=== PATIENT | female | born 1950 | race African-American/Black ===

== ENCOUNTER 2016-10-24 21:46 | Emergency (ER) | payer OTHER, MEDICARE ==
[~2016-10-24] VITALS: Ht 160 cm; Wt 48.0 kg
[~2016-10-24 21:46] MED LIST: LIPITOR20 M1 PO; NIFEDICAL XL60 MG PO; OMEPRAZOLE20 M2 PO; PREVACID30 M1 OR; PREVACID30 M1 PO; TENORMIN PO
[2016-10-25] MEDS ORDERED: PERCOCET 5/325M1 TAB PO (01:14)
[2016-10-25 01:24] VITALS: BP 140/73
== END 2016-10-25 01:29 | disposition home or self-care (01) | DRG 563 ==
LOC: ED 21:46
DX: S39.012A Strain of muscle, fascia and tendon of lower back, initial encounter (principal); M62.830 Muscle spasm of back; V43.52XA Car driver injured in collision with other type car in traffic accident, initial encounter; Y92.410 Unspecified street and highway as the place of occurrence of the external cause

== ENCOUNTER 2018-06-18 01:23 | Observation (INO) | payer MEDICARE ==
[~2018-06-18] VITALS: Ht 160 cm; Wt 45.0 kg
[2018-06-18] VITALS (7 sets, daily range): BP systolic 138–194; BP diastolic 71–103
[~2018-06-18 01:23] MED LIST changes: +PERCOCET 5/325M1 TAB PO
--- NOTE | 2018-06-18 01:44 | NUR ---
PT. TO ROOM 9 VIA EMS WITH C/O A TRIP AND FALL THIS AM WHERE SHE STATES SHE INJURED HER RIGHT SHOULDER. FINGERS TO RIGHT HAND ARE WARM AND MOVEABLE WITH GOOD CAPILLARY REFILL < 2 SEC.
--- NOTE | 2018-06-18 02:40 | NUR ---
COMPLETE BED BATH GIVEN.
[2018-06-18 02:43] LABS: HEMATOCRIT 39.3 % (37.0-47.0); HEMOGLOBIN 13.2 g/dl (12.0-16.0); IMMATURE GRANULOCYTES 0.5 % (0.0-5.0); MEAN CELL VOLUME 93.3 fL CALC (80.0-100.0); MEAN CORPUSCULAR HGB 31.4 pG CALC (26.0-32.0); MEAN CORPUSCULAR HGB CONC 33.6 g/L CALC (32.0-36.0); NEUT# 8.72 thou/uL (2.00-7.15); RED BLOOD COUNT 4.21 mill/uL (4.20-5.60); RED CELL DISTRI WIDTH 14.3 % (11.5-15.5)
[2018-06-18 02:44] LABS: URINE BILIRUBIN - DIPSTICK NEGATIVE (NEGATIVE); URINE BLOOD DIPSTICK TRACE-LYSED (NEGATIVE); URINE COLOR YELLOW; URINE GLUCOSE - DIPSTICK NEGATIVE (NEGATIVE); URINE KETONE NEGATIVE (NEGATIVE); URINE NITRITE - DIPSTICK NEGATIVE (Negative); URINE PH 5.5 (4.5-8.0); URINE PROTEIN - DIPSTICK 30 mg/dL (NEG-TRACE); URINE SPECIFIC GRAVITY >=1.030; URINE UROBILINOGEN - DIPSTICK 0.2 E.U./dL (0.2)
[2018-06-18 02:46] LABS: BARBITURATES NEGATIVE (NEGATIVE); COCAINE NEGATIVE (NEGATIVE); METHADONE NEGATIVE (NEGATIVE); OXCYCODONE NEGATIVE (NEGATIVE); TETRAHYDROCANNABIONOL NEGATIVE (NEGATIVE); TRICYLIC ANTIDEPRESSANTS NEGATIVE (NEGATIVE)
[2018-06-18 02:47] LABS: URINE LEUK ESTERASE SMALL (NEGATIVE)
[2018-06-18 03:02] LABS: ALKALINE PHOSPHATASE 90 u/l (38-126); ANION GAP 15 (6-22 (CALC)); BILIRUBIN, TOTAL 1.2 mg/dL (0.0-1.4); BUN 14 mg/dL (8-23); BUN/CREATININE RATIO 31 (12-20 (CALC)); CARBON DIOXIDE 30 mmol/l (22-30); CHLORIDE 101 mmol/l (95-108); CREATININE 0.5 mg/dL (0.5-1.0); ETHYL ALCOHOL 0 mg/dl (0-30); GFR > 60 ML/MIN (>=60 (CALC)); GFR FOR AFR.AMER. > 60 ML/MIN (>=60 (CALC)); POTASSIUM 3.5 mmol/l (3.5-5.1); SGOT/AST 43 u/l (9-36); SODIUM 142 mmol/l (137-146); TOTAL PROTEIN 8.3 g/dL (6.3-8.2)
[2018-06-18 03:10] LABS: URINE BACTERIA MODERATE hpf; URINE SQUAMOUS EPITHELIAL CELL FEW EPI/hpf (0-FEW)
[2018-06-18 03:13] LABS: MYOGLOBIN 34 ng/mL (0 - 62)
--- NOTE | 2018-06-18 03:40 | NUR ---
PT. RESTING QUIETLY ON STRETCHER, NO C/O V/S STABLE.
--- NOTE | 2018-06-18 04:40 | NUR ---
PT. INCONTINENT OF A MODERATE AMT. OF URINE, LINENS CHANGED, CHANDRIKA CARE GIVEN.
--- NOTE | 2018-06-18 05:01 | NUR ---
IV ABT. STARTED PER MD ORDER.
--- NOTE | 2018-06-18 06:08 | NUR ---
IN ROOM TO DISCUSS CLINICAL FINDINGS WITH PT. VERBALIZED UNDERSTANDING.
--- NOTE | 2018-06-18 06:49 | NUR ---
Admission Note Report Given to: JASE NURSE Transported by: Wheelchair X Stretcher Transported with: X Nurse Transporter X Patent IV O2 X Director Of Retention
--- NOTE | 2018-06-18 07:03 | NUR ---
PT. TAKEN TO RI FLOOR VIA STRETCHER. NO C/O AT THIS TIME.
--- NOTE | 2018-06-18 08:12 | NUR ---
PT TRANSPORTED TO MS2 VIA STRETCHER ACCOMPIANED BY LORA SAMUELS. PT A/O X3. PERRLA. SPEECH IS CLEAR. RESP EVEN AND UNLABORED. LUNG SOUNDS CLEAR. TELE IN PLACE. BOWEL SOUNDS ACTIVE X4. STRONG RADIAL AND PEDAL PULSES. #20 LAC SL. FLUSHED AND PATENT. SITE APPEARS HEALTHY. SKIN INTACT. PT HAS RT SHOULDER THROBBING. 7 OUT OF 10 ON PAIN SCALE. REPOSITIONED FOR COMFORT. PT DENIES ANY FURTHER NEEDS. POC DISCUSSED. SAFETY PRECAUTIONS IN PLACE. CALL LIGHT IN REACH. WILL CONTINUE TO MONITOR.
--- NOTE | 2018-06-18 12:46 | NUR ---
PT FOUND ON THE SIDE OF THE BED W/ URINE ON THE FLOOR. CHANGE MANAGEMENT DIRECTOR ASSISTED PT TO RECLINER. INSTRUCTED PT TO CALL WHEN NEEDING ASSISTANCE TO GET UP. PT STATES UNDERSTANDING. NO C/O PAIN OR NEEDS. TELE IN PLACE. BED ALARM ON. WILL CONTINUE TO MONITOR.
--- NOTE | 2018-06-18 16:40 | NUR ---
PT SITTING IN RECLINER. NO C/O PAIN OR NEEDS. TELE IN PLACE. CALL LIGHT IN REACH. WILL CONTINUE TO MONITOR
--- NOTE | 2018-06-18 19:24 | NUR ---
REPORT FROM JASE KELLOGG. PT SITTING UP IN RECLINER. PT ALERT AND ORIENTED. PT C/O RIGHT SHOULDER PAIN WILL MEDICATE WITH NEXT AVAILABLE DOSE. IV SITE APPEARS HEALTHY. DISCUSSED POC. PT VERBALIZED UNDERSTANDING. BED ALARM IN PLACE FOR SAFETY. CALL LIGHT WITHIN REACH. WILL CONTINUE TO MONITOR.
[2018-06-19] VITALS (7 sets, daily range): BP systolic 137–160; BP diastolic 76–85
--- NOTE | 2018-06-19 00:10 | NUR ---
ASSISTED PT TO BATHROOM X1 PERSON ASSIST. PT VOIDED WITHOUT DIFFICULTY. PT DENIES ANY PAIN OR DISCOMFORT. CALL LIGHT WITHIN REACH. WILL CONTINUE TO MONITOR.
--- NOTE | 2018-06-19 04:19 | NUR ---
B/P 160/76 AND PT. C/O RIGHT SHOULDER PAIN; MEDICATED WITH ORDERED APRESOLINE; PRIMARY NURSE TO REASSESS;
[2018-06-19 05:12] LABS: HEMATOCRIT 35.6 % (37.0-47.0); HEMOGLOBIN 11.9 g/dl (12.0-16.0); IMMATURE GRANULOCYTES 0.2 % (0.0-5.0); MEAN CELL VOLUME 94.4 fL CALC (80.0-100.0); MEAN CORPUSCULAR HGB 31.6 pG CALC (26.0-32.0); MEAN CORPUSCULAR HGB CONC 33.4 g/L CALC (32.0-36.0); NEUT# 4.27 thou/uL (2.00-7.15); RED BLOOD COUNT 3.77 mill/uL (4.20-5.60); RED CELL DISTRI WIDTH 14.2 % (11.5-15.5)
--- NOTE | 2018-06-19 05:12 | NUR ---
FOLLOW UP FROM AYESHA GIVEN BY RN ON SHIFT. CURRENT BP 128/76 AND PULSE 77. PT RESTING COMFORTABLY IN BED AT THIS TIME. CALL LIGHT WITHIN REACH. WILL CONTINUE TO MONITOR.
[2018-06-19 05:26] LABS: ALKALINE PHOSPHATASE 66 u/l (38-126); ANION GAP 11 (6-22 (CALC)); BILIRUBIN, TOTAL 0.7 mg/dL (0.0-1.4); BUN 12 mg/dL (8-23); BUN/CREATININE RATIO 31 (12-20 (CALC)); CARBON DIOXIDE 25 mmol/l (22-30); CHLORIDE 106 mmol/l (95-108); CREATININE 0.4 mg/dL (0.5-1.0); GFR > 60 ML/MIN (>=60 (CALC)); GFR FOR AFR.AMER. > 60 ML/MIN (>=60 (CALC)); POTASSIUM 3.3 mmol/l (3.5-5.1); SGOT/AST 31 u/l (9-36); SODIUM 138 mmol/l (137-146)
[2018-06-19 05:27] LABS: ALBUMIN 3.8 g/dL (3.2-5.0); TOTAL PROTEIN 5.9 g/dL (6.3-8.2)
[2018-06-19 05:29] LABS: CHOLESTEROL HDL RATIO 1.8 (<4.4 (CALC)); MAGNESIUM 1.8 mg/dL (1.6-2.3)
--- NOTE | 2018-06-19 06:55 | NUR ---
PT REPORT RECIEVED FROM VALDEZ DUMONT. PT WATCHING TELEVISION. BED ALARM ON. CALL LIGHT IN REACH. WILL CONTINUE TO MONITOR.
--- NOTE | 2018-06-19 07:40 | NUR ---
PT A/O X3. SPEECH IS CLEAR. RESP EVEN AND UNLABORED. LUNG SOUNDS CLEAR. TELE IN PLACE. BOWEL SOUNDS ACTIVE X4. STRONG RADIAL AND PEDAL PULSES. #20 LAC LR @100. SITE APPEARS HEALTHY. SKIN INTACT. PT DENIES ANY PAIN OR NEEDS. POC DISCUSSED. SAFETY PRECAUTIONS IN PLACE. BED ALARM ON. CALL LIGHT IN REACH. WILL CONTINUE TO MONITOR.
--- NOTE | 2018-06-19 11:01 | NUR ---
PT UP IN RECLINER. NO C/O PAIN OR NEEDS. BED ALARM ON. CALL LIGHT IN REACH. WILL CONTINUE TO MONITOR.
--- NOTE | 2018-06-19 16:33 | NUR ---
PT SITTING IN RECLINER WATCHING TELEVISION. NO C/O PAIN OR NEEDS. TELE IN PLACE. CALL LIGHT IN REACH. WILL CONTINUE TO MONITOR.
[2018-06-19 17:55] LABS: URINE BILIRUBIN - DIPSTICK NEGATIVE (NEGATIVE); URINE BLOOD DIPSTICK SMALL (NEGATIVE); URINE COLOR YELLOW; URINE GLUCOSE - DIPSTICK NEGATIVE (NEGATIVE); URINE KETONE NEGATIVE (NEGATIVE); URINE LEUK ESTERASE MODERATE (NEGATIVE); URINE NITRITE - DIPSTICK NEGATIVE (Negative); URINE PROTEIN - DIPSTICK NEGATIVE (NEG-TRACE); URINE SPECIFIC GRAVITY 1.015; URINE UROBILINOGEN - DIPSTICK 0.2 E.U./dL (0.2)
[2018-06-19 18:21] LABS: URINE BACTERIA RARE hpf; URINE SQUAMOUS EPITHELIAL CELL FEW EPI/hpf (0-FEW)
--- NOTE | 2018-06-19 19:00 | NUR ---
REPORT RECEIVED FROM VALDEZ LAGUNA. PT RESTING IN BED, NO SIGNS OR SYMTOMS OF DISTRESS. SAFETY PRECAUTIONS IN PLACE. BED ALARM ACTIVE FOR PT SAFETY. WILL CONTINUE TO MONITOR.
--- NOTE | 2018-06-19 20:40 | NUR ---
PT RESTING IN BED. ALERT AND ORIENTED. RESPIRATIONS EVEN AND UNLABORED ON RA, LUNGS SOUNDS CLEAR. TELE MONITOR IN PLACE. PT DENIES ANY PAIN AT THIS TIME. PT ASSISTED TO THE BATHROOM, GATE STEADY. CHANGED PT GOWN AND ASSTED PT BACK INTO BED. BED ALARM ACTIVE FOR PT SAFETY. CALL HURTADO WITHIN REACH. WILL CONTINUE TO MONITOR.
--- NOTE | 2018-06-19 23:40 | NUR ---
PT BEING ASSISTED FROM THE RESTROOM BACK INTO BED BY AID. RESPIRATIONS EVEN AND UNLABORED. BED ALARM ACTIVATED FOR PT SAFETY. WILL CONTINUE TO MONITOR.
--- NOTE | 2018-06-20 03:16 | NUR ---
PT RESTING IN BED WITH EYES CLOSED. RESPIRATIONS EVEN AND UNLABORED ON RA. BED ALARM ACTIVE FOR PT SAFETY. WILL CONTINUE TO MONITOR.
[2018-06-20 04:50] VITALS: BP 179/78
--- NOTE | 2018-06-20 05:14 | NUR ---
ROUTINE VS OBTAINED BY STEEL FABRICATING SUPERVISOR BP 179/78. DIRECTOR OF NEIGHBORHOOD SERVICE CENTER OBTAINED A MANUAL BP 182/90. PRN 10MG IV APRESOLINE GIVEN. SAFETY PRECAUTIONS IN PLACE. BED ALARM ACTIVE FOR PT SAFETY. WILL CONTINUE TO MONITOR.
[2018-06-20 05:26] LABS: HEMATOCRIT 32.8 % (37.0-47.0); HEMOGLOBIN 10.8 g/dl (12.0-16.0); IMMATURE GRANULOCYTES 0.4 % (0.0-5.0); MEAN CELL VOLUME 95.3 fL CALC (80.0-100.0); MEAN CORPUSCULAR HGB 31.4 pG CALC (26.0-32.0); MEAN CORPUSCULAR HGB CONC 32.9 g/L CALC (32.0-36.0); RED BLOOD COUNT 3.44 mill/uL (4.20-5.60); RED CELL DISTRI WIDTH 14.3 % (11.5-15.5)
[2018-06-20 05:42] LABS: ANION GAP 7 (6-22 (CALC)); BUN 10 mg/dL (8-23); BUN/CREATININE RATIO 24 (12-20 (CALC)); CARBON DIOXIDE 29 mmol/l (22-30); CHLORIDE 108 mmol/l (95-108); CREATININE 0.4 mg/dL (0.5-1.0); GFR > 60 ML/MIN (>=60 (CALC)); GFR FOR AFR.AMER. > 60 ML/MIN (>=60 (CALC)); MAGNESIUM 1.8 mg/dL (1.6-2.3); POTASSIUM 3.7 mmol/l (3.5-5.1); SODIUM 139 mmol/l (137-146)
--- NOTE | 2018-06-20 06:55 | NUR ---
REPORT RECEIVED FROM ESMERN;PT OOB RESTING IN RECLINER, REPORTS EAGERNESS TO GO HOME TO FEED HER DOGS;INTRODUCED SELF TO PT AND POC DISCUSSED;ALERT & ORIENTED,FORGETFULNESS NOTED;RESPIRATIONS EVEN AND UNLABORED ON RA;PT DENIES ANY CURRENT PAIN OR NEEDS;TELE MONITORING IN PLACE;PT ENCOURAGED TO CALL FOR ASSISTANCE IF NEEDED;FALL PRECAUTIONS NOTED WITH BED ALARM ON FOR SAFETY;CALL LIGHT IN REACH;WILL CONTINUE TO MONITOR
[2018-06-20 07:30] VITALS: BP 170/63
--- NOTE | 2018-06-20 09:10 | NUR ---
PT OBB RESTING IN RECLINER;ALERT AND ORIENTED BUT FORGETFUL;FLIGHT OF IDEAS;ASSESSMENT COMPLETED;PT DENIES ANY CURRENT PAIN OR NEEDS,PAIN SCALE AND REPORTING EDUCATED;RESPIRATIONS EVEN AND UNLABORED ON RA,CLEAR LUNG SOUNDS NOTED;ABDOMEN SOFT ON PALPATION AND ACTIVE IN ALL 4 QUADRANTS;SKIN INTACT;#22G TO RIGHT FOREARM INFUSING LR @ 100ML/HR,SITE APPEARS HEALTHY;TELE MONITORING IN PLACE;PT DENIES ANY ADDITIONAL NEEDS BESIDES "TO GO HOME", ENCOURAGED TO CALL FOR ASSISTANCE IF NEEDED;FALL PRECAUTIONS IN PLACE WITH BED ALARM ON FOR SAFETY;CALL LIGHT IN REACH;WILL CONTINUE TO MONITOR
[2018-06-20 11:01] VITALS: BP 153/77
--- NOTE | 2018-06-20 11:35 | NUR ---
PT RESTING IN SEMI FOWLERS POSITION WITH SEIZURE PRECAUTIONS IN PLACE;RESPIRATIONS EVEN AND UNLABORED ON RA;PT DENIES ANY CURRENT PAIN OR NEEDS;IV SITE TO RIGHT FOREARM INFUSING BANANA BAG WITH EASE;TELE MONITORING IN PLACE;FALL PRECAUTIONS NOTED WITH BED ALARM ON FOR SAFETY;CALL LIGHT IN REACH;WILL CONTINUE TO MONITOR
[2018-06-20 11:57] VITALS: BP 150/72
--- NOTE | 2018-06-20 12:10 | NUR ---
AT BEDSIDE DISCUSSING POC INCLUDING D/C HOME,PT VERBALIZES UNDERSTANDING.
[2018-06-20 16:15] VITALS: BP 158/78
--- NOTE | 2018-06-20 16:30 | NUR ---
PT OOB RESTING IN RECLINER;ALERT AND ORIENTED X3;RESPIRATIONS EVEN AND UNLABORED ON RA;PT DENIES ANY CURRENT PAIN OR NEEDS;TELE MONITORING IN PLACE;IV SITE PATENT INFUSING BANANA BAG WITH EASE;WAITING FOR BANANA BAG TO BE COMPLETED FOR D/C HOME, PT VERBALIZES UNDERSTANDING;CALL LIGHT IN REACH;WILL CONTINUE TO MONITOR
--- NOTE | 2018-06-20 18:10 | NUR ---
ALL DISCHARGE INSTRUCTIONS PROVIDED AT THIS TIME,QUESTIONS ANSWERED;IV SITE REMOVED WITH CATHETER INTACT;[facility] PT REQUEST;WHEELCHAIR TO BE PROVIDED FOR DISCHARGE HOME.
--- NOTE | 2018-06-20 18:13 | NUR ---
Discharge instructions given. Patient verbalizes understanding of same. Discharged in stable condition via Wheelchair to Home with *Other. All belongings sent with pt. Pt transferred to [facility] via wheelchair in stable condition accompanied by drew ponce; [employer] waiting for transportation home.
== END 2018-06-20 18:11 | disposition home or self-care (01) ==
LOC: ED 01:23 → ED-I 06:11 → ED 06:19 → MS2 06:24
PROVIDERS: Emergency Medicine; Nurse Practitioner Family; ADMIT Internal Medicine Nephrology; ATTEND Internal Medicine Nephrology
DX: G93.41 Metabolic encephalopathy (principal); I10 Essential (primary) hypertension; E78.5 Hyperlipidemia, unspecified; N39.3 Stress incontinence (female) (male); F17.210 Nicotine dependence, cigarettes, uncomplicated; E46 Unspecified protein-calorie malnutrition; M25.511 Pain in right shoulder; W19.XXXA Unspecified fall, initial encounter; Y92.410 Unspecified street and highway as the place of occurrence of the external cause; Z68.1 Body mass index [BMI] 19.9 or less, adult; Z72.89 Other problems related to lifestyle
CPT/HCPCS: G0378; J1956

== ENCOUNTER 2019-09-11 13:54 | Emergency (ER) | payer MEDICARE ==
[2019-09-11] MEDS ORDERED: CEPHALEXIN500 M1 PO (14:12)
[2019-09-11 14:40] VITALS: BP 122/68
== END 2019-09-11 14:40 | disposition home or self-care (01) ==
LOC: ED 13:54
PROC: 0HQ1XZZ Repair Face Skin, External Approach (ICD-10-PCS; principal; 2019-09-11)
DX: S01.81XA Laceration without foreign body of other part of head, initial encounter (principal); M25.552 Pain in left hip; I10 Essential (primary) hypertension; F17.200 Nicotine dependence, unspecified, uncomplicated; W01.0XXA Fall on same level from slipping, tripping and stumbling without subsequent striking against object, initial encounter; Y92.410 Unspecified street and highway as the place of occurrence of the external cause

== ENCOUNTER 2019-09-22 10:14 | Emergency (ER) | payer MEDICARE ==
[~2019-09-22 10:14] MED LIST changes: +CEPHALEXIN500 M1 PO
[2019-09-22 10:40] VITALS: BP 132/94
== END 2019-09-22 10:40 | disposition home or self-care (01) ==
LOC: ED 10:14
DX: S01.81XD Laceration without foreign body of other part of head, subsequent encounter (principal); I10 Essential (primary) hypertension; F17.210 Nicotine dependence, cigarettes, uncomplicated; X58.XXXD Exposure to other specified factors, subsequent encounter

== ENCOUNTER 2019-10-12 09:42 | Emergency (ER) | payer MEDICARE ==
[~2019-10-12] VITALS: Ht 157.5 cm; Wt 44.0 kg
[2019-10-12] MEDS ORDERED: ULTRAM50 M1 PO (11:02)
[2019-10-12 11:15] VITALS: BP 143/87
== END 2019-10-12 11:15 | disposition home or self-care (01) ==
LOC: ED 09:42
DX: S73.102A Unspecified sprain of left hip, initial encounter (principal); I10 Essential (primary) hypertension; F17.200 Nicotine dependence, unspecified, uncomplicated; W01.0XXA Fall on same level from slipping, tripping and stumbling without subsequent striking against object, initial encounter; Y92.009 Unspecified place in unspecified non-institutional (private) residence as the place of occurrence of the external cause

== ENCOUNTER 2022-03-11 10:34 | Observation (INO) | payer MEDICARE ==
[~2022-03-11] VITALS: Ht 157.5 cm; Wt 50.0 kg
[2022-03-11] VITALS (29 sets, daily range): BP systolic 129–214; BP diastolic 63–112
[~2022-03-11 10:34] MED LIST changes: +ULTRAM50 M1 PO
--- NOTE | 2022-03-11 10:34 | NUR ---
PT TO ROOM VIA EMS STRETCHER
--- NOTE | 2022-03-11 11:34 | NUR ---
PT SITTING IN RM AWAITING RESULTS. CALL LIGHT WITHIN REACH.
--- NOTE | 2022-03-11 12:34 | NUR ---
PATIENT LAYING IN BED SLEEPING AT THIS TIME AWAITING RESULTS. CALL LIGHT WITHIN REACH.
--- NOTE | 2022-03-11 13:34 | NUR ---
PATIENT LAYING IN BED SLEEPING AT THIS TIME AWAITING RESULTS. CALL LIGHT WITHIN REACH.
[2022-03-11 14:11] LABS: HEMATOCRIT 37.8 % (37.0-47.0); HEMOGLOBIN 12.3 g/dl (12.0-16.0); MEAN CELL VOLUME 90.2 fL CALC (80.0-100.0); MEAN CORPUSCULAR HGB 29.4 pG CALC (26.0-32.0); MEAN CORPUSCULAR HGB CONC 32.5 g/dL CAL (32.0-36.0); NEUT# 3.8 thou/uL (2.00-7.15); RED BLOOD COUNT 4.19 mill/uL (4.20-5.60); RED CELL DISTRI WIDTH 14.6 % (11.5-15.5)
[2022-03-11 14:26] LABS: ALBUMIN 4.1 g/dL (3.2-5.0); ALKALINE PHOSPHATASE 60 u/l (38-126); ANION GAP 9 (6-22 (CALC)); BILIRUBIN, TOTAL 0.4 mg/dL (0.0-1.4); BUN 14 mg/dL (8-23); BUN/CREATININE RATIO 21 (12-20 (CALC)); CARBON DIOXIDE 28 mmol/l (22-30); CHLORIDE 108 mmol/l (95-108); CREATININE 0.7 mg/dL (0.5-1.0); GFR FOR AFR.AMER. > 60 ML/MIN (>=60 (CALC)); GFR OTHER RACES > 60 ML/MIN (>=60 (CALC)); POTASSIUM 4.1 mmol/l (3.5-5.1); SGOT/AST 22 u/l (9-36); SODIUM 140 mmol/l (137-146); TOTAL PROTEIN 6.9 g/dL (6.3-8.2)
--- NOTE | 2022-03-11 14:30 | NUR ---
PATIENT LAYING IN BED SLEEPING AT THIS TIME AWAITING RESULTS. CALL LIGHT WITHIN REACH.
--- NOTE | 2022-03-11 15:30 | NUR ---
PATIENT LAYING IN BED SLEEPING AT THIS TIME AWAITING RESULTS. CALL LIGHT WITHIN REACH.
--- NOTE | 2022-03-11 16:35 | NUR ---
PATIENT LAYING IN BED SLEEPING AT THIS TIME AWAITING ADMISSION. CALL LIGHT WITHIN REACH.
--- NOTE | 2022-03-11 17:32 | NUR ---
PT ARRIVED VIA STRETCHER ACCOMPAINED BY ER STAFF. REPORT FROM DEANN KELLOGG. PT TRANSFERED FROM STRETCHER TO BED. NO APPARENT DISTRESS NOTED. PT ALERT TO SELF. INCONTINENT OF B&B. SKIN INTACT. PT REFUSED IV SITE AND TO CHANGE INTO GOWN. ATTEMPTED TO ORIENTED PT TO ROOM AND CALL LIGHT SYSTEM. BED ALARM AND NONSKID SOCKS APPLIED. CALL LIGHT WITHIN REACH. WILL CONTINUE TO MONITOR.
--- NOTE | 2022-03-11 17:50 | NUR ---
Admission Note Report Given to: TIM PAULINO Transported by: Wheelchair X Stretcher Transported with: X Nurse Transporter Patent IV O2 Land Use Planner Location: ICU X MS2
[2022-03-11 18:30] LABS: URINE BILIRUBIN - DIPSTICK NEGATIVE (NEGATIVE); URINE BLOOD DIPSTICK NEGATIVE (NEGATIVE); URINE COLOR YELLOW; URINE GLUCOSE - DIPSTICK NEGATIVE (NEGATIVE); URINE KETONE NEGATIVE (NEGATIVE); URINE LEUK ESTERASE NEGATIVE (NEGATIVE); URINE PH 7.5 (4.5-8.0); URINE PROTEIN - DIPSTICK NEGATIVE (NEG-TRACE); URINE SPECIFIC GRAVITY 1.025; URINE UROBILINOGEN - DIPSTICK 0.2 E.U./dL (0.2)
[2022-03-11 18:32] LABS: URINE NITRITE - DIPSTICK NEGATIVE (Negative)
--- NOTE | 2022-03-11 19:30 | NUR ---
PATIENT POSITIONED ON HER LEFT SIDE IN POSITION. REFUSING DINNER AT THIS TIME. WILL SAVE IF SHE WANTS IT LATER. BP IS HIGH BUT PATIENT IS RESTLESS AND FIGHTING TO HAVE ANY KIND OF CARE OR ASSISTANCE AT THIS TIME. REFUSING ASSESSMENT AT THIS TIME. WILL ATTEMPT LATER. BED ALARM IN PLACE FOR PATIENT SAFETY AT THIS TIME. CALL LIGHT IN REACH. WILL CONT TO MONITOR.
--- NOTE | 2022-03-11 21:14 | NUR ---
PATIENT CONT TO REST IN BED. WAS ABLE TO GET BP AND WAS 151/63, HR-39. HR HAS BEEN LOW SINCE ADMISSION. WAS ABLE TO MEDICATE PATIENT WITH LOVENOX ORDERED. NO FUTHER CARE WAS ABLE TO BE PROVIDED. BED ALARM IN PLACE. CALL LIGHT IN REACH. WILL CONT TO MONITOR.
--- NOTE | 2022-03-12 01:53 | NUR ---
BED ALARM GOING OFF AND RESPONDED TO ROOM-PATIENT WAS TRYING TO GET OOB TO GO TO THE BR. UNSTEADY ON HIS FEET-ASSISTED TO BR TO VOID AND THEN ASSISTED TO BED. PATIENT REMAINS CONFUSED-ORIENTED TO SELF ONLY. WANTS TO KNOW HOW SHE GOT HERE-EXPLAINED TO HER THAT SHE WAS BROUGHT TO THE HOSPITAL BY THE PARAMEDICS AFTER SHE HAD FALLEN. LUNGS ARE CLEAR. HR IS IRREGULAR AND SLOW-40'S. ABD IS SOFT WITH ACTIVE BS. VOIDING IN THE BR. NO PERIPHERAL EDEMA. EATING HEALTHY CHOICE TURKEY MEAL. APPETITE IS GOOD. TAKING PO FLUIDS WELL. IV STARTED TO LEFT FOREARM-#22 WITH GOOD BLOOD RETURN. IVF NS PATENT AND INFUSING AT 100CC/HR. SAFETY PRECAUTIONS REINFORCED. BED ALARM IN PLACE FOR PATIENT SAFETY. CALL LIGHT IN REACH. WILL CONT TO MONITOR.
--- NOTE | 2022-03-12 02:32 | NUR ---
X-RAY WAS DONE AT BEDSIDE. IVF PATENT AND INFUSING VIA LEFT FORFEARM SITE AT 100CC/HR. PATIENT REMAINS CONFUSED BUT PLEASANT AT THIS TIME. BED ALARM IN PLACE FOR SAFETY. CALL LIGHT IN REACH.WILL CONT TO MONITOR.
[2022-03-12 05:08] VITALS: BP 160/89
[2022-03-12 07:08] VITALS: BP 178/73
[2022-03-12 07:09] VITALS: BP 178/73
--- NOTE | 2022-03-12 07:16 | NUR ---
PT RESTING IN LOW FOWLERS POSITION. ASSESSMENT AND VS COMPLETED. HEART RHYTHM NORM RESPIRAITONS ON ROOM AIR. IV SITE NOTED. PT DENIES ADDITIONAL NEEDS AT THE TIME PT ORIENTED TO USE CALL LIGHT FOR NEEDS.
[2022-03-12 08:07] VITALS: BP 190/82
[2022-03-12 08:30] LABS: HEMATOCRIT 38.3 % (37.0-47.0); HEMOGLOBIN 12.6 g/dl (12.0-16.0); MEAN CELL VOLUME 90.1 fL CALC (80.0-100.0); MEAN CORPUSCULAR HGB 29.6 pG CALC (26.0-32.0); MEAN CORPUSCULAR HGB CONC 32.9 g/dL CAL (32.0-36.0); RED BLOOD COUNT 4.25 mill/uL (4.20-5.60); RED CELL DISTRI WIDTH 14.4 % (11.5-15.5)
[2022-03-12 08:47] LABS: ANION GAP 9 (6-22 (CALC)); BUN 14 mg/dL (8-23); BUN/CREATININE RATIO 24 (12-20 (CALC)); CARBON DIOXIDE 28 mmol/l (22-30); CHLORIDE 106 mmol/l (95-108); CREATININE 0.6 mg/dL (0.5-1.0); GFR FOR AFR.AMER. > 60 ML/MIN (>=60 (CALC)); GFR OTHER RACES > 60 ML/MIN (>=60 (CALC)); MAGNESIUM 1.9 mg/dL (1.6-2.3); POTASSIUM 4.2 mmol/l (3.5-5.1); SODIUM 139 mmol/l (137-146)
[2022-03-12] MEDS ORDERED: NORVASC2.5 M1 PO (09:51)
[2022-03-12] MEDS ORDERED: CYCLOBENZAPRINE10 MG PO (09:53)
[2022-03-12] MEDS ORDERED: MELOXICAM15 MG PO (09:57)
[2022-03-12] MEDS ORDERED: OXYBUTYNIN CHLOR5 M2 PO (09:59)
--- NOTE | 2022-03-12 13:49 | NUR ---
PT RESTING IN HIGH FOWLERS POSITION. PT REMOVED IV NEW IV TO BE STARTED.
--- NOTE | 2022-03-12 16:08 | NUR ---
PT RESTING IN LOW FOWLERS POSITION. PT EDUCATED ON NEED OF IV SITE CARE NEEDS REINFORCEMENT.
[2022-03-12 16:39] VITALS: BP 140/74
[2022-03-12 18:50] VITALS: BP 135/76
--- NOTE | 2022-03-12 21:47 | NUR ---
PT RESTING IN BED IN NO SIGN OF DISCOMFORT. PT ALERT, ORIENTED TO SELF. PT DECLINES NEEDS AT THIS TIME
--- NOTE | 2022-03-13 01:00 | NUR ---
PT CONFUSED, STATES SHE WANTS TO GO HOME. PT REORIENTED TO HOSPITAL SETTING. PT RESTING IN NO SIGN OF DISCOMFORT.
[2022-03-13 04:32] VITALS: BP 137/71
--- NOTE | 2022-03-13 06:11 | NUR ---
PT AGITATED, ATTEMPTING TO LEAVE HOSPITAL. PT STATES, 'I HAVE TO GO TO MY HOUSE', PT REORIENTED TO HOSPITAL SETTING, PT STATES, 'NO THANK YOU,' PT RESTING IN BED IN NO ACUTE DISTRESS, BED ALARM ON.
--- NOTE | 2022-03-13 07:11 | NUR ---
PT COMBATIVE, ANXIOUS. PT STATES, 'I AM LEAVING HERE.' PT WANDERING HALLWAYS, DIFFICULT TO REDIRECT. PT STATES, 'I AM GOING HOME.' STAFF ABLE TO DIRECT PT BACK TO ROOM. CASING CLEANER, EDWIGE, NOTIFIED. DR. WELLS NOTIFIED. WILL CONTINUE TO MONITOR.
--- NOTE | 2022-03-13 08:00 | NUR ---
RECEIVED REPORT FROM SALES REPRESENTATIVE MARINE SUPPLIES RN. PATIENT IS CONFUSED ONLY A&O TO SEFL. PT WAS OUT IN THE HALLWAY BEING COMBATIVE AND REFUSED TO GO BACK TO HER ROOM. PT STATED THAT SHE NEEDED TO GO HOME. PT REFUSED SHIFT ASSESSMENT, WILL ATTEMPT AGAIN ONCE SHE CALMS DOWN. LORA GIBBONS, CLINICAL COORDINATOR IS WITH HER.
--- NOTE | 2022-03-13 09:30 | NUR ---
PATIENT RESTING ON RECLINER, PT IS A&O TO SELF. ASSESMENT COMPLETED. PT EATING BREAKFAST.
--- NOTE | 2022-03-13 12:00 | NUR ---
PATIENT IS RESTING ON RECLINER, CONFUSION NOTED - STATED "I NEED TO GO HOME AND TAKE CARE OF MY BABIES". ASSISTED HER TO THE BATHROOM. PATIENT DENIES ANY PAIN AT THIS TIME.
--- NOTE | 2022-03-13 16:07 | NUR ---
GOT REPORT FROM NURSE. I AM RESUMING CARE FOR PATIENT. INTRODUCED MYSELF TO PATIENT IS AO TO SELF ONLY. PATIENT IS SITTING IN RECLINER WITH CHAIR ALARM ON.
--- NOTE | 2022-03-13 19:18 | NUR ---
PT CONFUSED, COMBATIVE, DIFFICULT TO REDIRECT. SCHEDULED MEDICATIONS GIVEN WITH ICE CREAM. SITTER IN ROOM. PT IN NO ACUTE DISTRESS.
--- NOTE | 2022-03-13 19:27 | NUR ---
03/13/2022 at 1922 the pt stated "I want to go home", pt was in the hallway getting combat outside her room on medsurg LORA Chaparro and LORA Oliveira was present. Both nurses help me get the pt back in her room. Pt refused blood pressure and the nurse was notified.
--- NOTE | 2022-03-14 00:10 | NUR ---
PT COMBATIVE, UNABLE TO REDIRECT. DR MOLINA NOTIFIED, NEW ORDERS, SEE EMAR.
--- NOTE | 2022-03-14 01:03 | NUR ---
MEDICATION GIVEN. PT ALLOWED STAFF TO ASSIST PT INTO BED. PT RESTING IN BED IN NO SIGN OF DISCOMFORT. WILL CONTINUE TO MONITOR.
--- NOTE | 2022-03-14 03:54 | NUR ---
PT SLEEPING IN NO SIGN OF DISCOMFORT. WILL CONTINUE TO MONITOR.
--- NOTE | 2022-03-14 04:48 | NUR ---
Nurse was notified about vital signs, nurse wanted the pt to sleep.
--- NOTE | 2022-03-14 07:00 | NUR ---
PT RESTING WITH SITTER AT BEDSIDE. BREATHING EVEN AND UNLABORED. NO DISTRESS NOTED. FALL/SAFTEY PRECAUTIONS IN PLACE, CALL LIGHT WITHIN REACH
--- NOTE | 2022-03-14 08:54 | NUR ---
PT RESTING IN BED RESTING WITH EYES CLOSED. BREATHING EVEN AND UNLABORED. SITTER AT BEDSIDE. FALL/SAFTEY PRECAUTION IN PLACE, CALL LIGHT WITHIN REACH
--- NOTE | 2022-03-14 12:10 | NUR ---
PT EATING LUNCH WITH SITTER AT BEDSIDE. PT CALM. BREATHING EVEN AND UNLABORED. NO DISTRESS NOTED. FALL/SAFTEY PRECAUTIONS IN PLACE, CALL LIGHT WITHIN REACH
[2022-03-14 15:44] VITALS: BP 135/70
--- NOTE | 2022-03-14 16:15 | NUR ---
PT RESTING IN RECLINER AT THIS TIME WITH SITTER AT BEDSIDE. BREATHING IS EVEN AND UNLABORED. NO DISTRESS NOTED. FALL/SAFTEY PRECAUITONS IN PLACE, CALL LIGHT WITHIN REACH
[2022-03-14 18:50] VITALS: BP 106/59
[2022-03-14 18:51] VITALS: BP 106/59
--- NOTE | 2022-03-14 20:59 | NUR ---
PT IN RECLINER RESTING WITH EYES CLESED BREATHING EVEN AND UNLABORED. STITER AT BEDSIDE. PT AWAKEN TO COMPLETED ASSESMET. PT A&O X1 DENIES PAIN OR DISCOMFORT. NO S/S OF DISTRES NOTED CALL LIGHT IN REACH.
--- NOTE | 2022-03-15 00:45 | NUR ---
PT IN RECLINER RESTING WITH EYES CLOSED BREATHING EVEN AND UNLABORED. NO S/S OF DISTRESS NOTED. SITER AT BIDSIDE. CALL LIGHT IN REACH
[2022-03-15 04:39] VITALS: BP 132/67
[2022-03-15 04:41] VITALS: BP 132/67
--- NOTE | 2022-03-15 04:45 | NUR ---
PT IN RECLINER RESTING WITH EYES CLOSED BREATHING EVEN AND UNLABORED. NO S/S OF DISTRESS NOTED. SITTER AT BEDSIDE, CALL LIGHT IN REACH
[2022-03-15 06:41] VITALS: BP 165/70
--- NOTE | 2022-03-15 07:03 | NUR ---
REPORT FROM LENIN KELLOGG. ASSUMED PT CARE.
--- NOTE | 2022-03-15 08:04 | NUR ---
PT SITTING UP EATING BREAKFAST. NO APPARENT DISTRESS NOTED. PT PLEASANT AT THIS TIME. SITTER REMAINS AT BEDSIDE. CALL LIGHT WITHIN REACH. WILL CONTINUE TO MONITOR.
--- NOTE | 2022-03-15 08:50 | NUR ---
DR. MOLINA AT BEDSIDE.
[2022-03-15 09:48] VITALS: BP 141/61
--- NOTE | 2022-03-15 09:57 | NUR ---
SITTER DISCONTINUED. PT SITTING UP IN BED WATCHING TV. NO APPARENT DISTRESS NOTED. CALL LIGHT WITHIN REACH. WILL CONTINUE TO MONITOR.
--- NOTE | 2022-03-15 10:56 | NUR ---
REPORT GIVEN TO CINDY KELLOGG.
--- NOTE | 2022-03-15 11:00 | NUR ---
PT DENIES ADDITIONAL NEEDS AT THE TIME RESTING IN BED . ASSESSMENT COMPLETED. IV SITE NOTED.
--- NOTE | 2022-03-15 12:03 | NUR ---
PT IN HIGH FOWLERS POSITION ENJOYING LUNCH.
[2022-03-15 15:20] VITALS: BP 139/86
--- NOTE | 2022-03-15 16:50 | NUR ---
PT CHAIR ALARM ACTIVE PT LEFT ROOM TO SPEAK TO NURSE. PT THOUGHT NURSE WAS TALKING TO HER . NURSE WAS ON PHONE. PT ORIENTED BACK TO ROOM. ASSISTED TO BSC. PT ON CHAIR ALARM CURRENTLY.
[2022-03-15 18:50] VITALS: BP 127/63
--- NOTE | 2022-03-15 19:30 | NUR ---
PT IN BED RESTING WITH EYES CLOSED BREAHTING EVEVN AND UNLABORED. NO S/S OF DISTRESS NOTED. CALL LIGHT IN NREACH AND BED IN LOWEST POSITION. BED ALARM ON.
--- NOTE | 2022-03-15 21:20 | NUR ---
PT IN BED AWAKE DENIES PAIN OR DISCOMFORT. NO S/S OF DISTRESS NOTED. ASSESSMENT COMPLETED. CALL LIGHT IN REACH AND BED IN LOWEST POSITION. BED ALARM ON
[2022-03-16] VITALS (7 sets, daily range): BP systolic 114–146; BP diastolic 63–73
--- NOTE | 2022-03-16 00:55 | NUR ---
PT IN BED RESTING WITH EYES CLOSED BREATHING EVEN AND UNLABORED. NO S/S OF DISTRESS NOTED CALL LIGHT IN REACH AND BED IN LOWEST POSITION. BED ALARM ON
--- NOTE | 2022-03-16 04:19 | NUR ---
PT ASSISTED TO BSC AND TO BED NO S/S OF DISTRESS NOTED, BREATHING EVEN AND UNLABORED. CALL LIGHT IN REACH AND BED IN LOEST POSITION BED ALARM ON.
[2022-03-16 04:45] LABS: HEMATOCRIT 35.9 % (37.0-47.0); HEMOGLOBIN 11.6 g/dl (12.0-16.0); IMMATURE GRANULOCYTES 0.2 % (0.0-5.0); MEAN CELL VOLUME 89.8 fL CALC (80.0-100.0); MEAN CORPUSCULAR HGB CONC 32.3 g/dL CAL (32.0-36.0); NEUT# 2.93 thou/uL (2.00-7.15); RED CELL DISTRI WIDTH 14.7 % (11.5-15.5)
[2022-03-16 05:00] LABS: ANION GAP 9 (6-22 (CALC)); BUN 21 mg/dL (8-23); BUN/CREATININE RATIO 35 (12-20 (CALC)); CARBON DIOXIDE 28 mmol/l (22-30); CHLORIDE 109 mmol/l (95-108); CREATININE 0.6 mg/dL (0.5-1.0); GFR FOR AFR.AMER. > 60 ML/MIN (>=60 (CALC)); GFR OTHER RACES > 60 ML/MIN (>=60 (CALC)); MAGNESIUM 2.1 mg/dL (1.6-2.3); POTASSIUM 4.7 mmol/l (3.5-5.1); SODIUM 140 mmol/l (137-146)
--- NOTE | 2022-03-16 12:40 | NUR ---
PT ATTEMTPED TO LEAVE ROOM. AGITITATED PT REORIENTED AL SAFETY PRECAUTIONS IN PLACE BA ACTIVE . CHAIR ALARM IN USE.
--- NOTE | 2022-03-16 16:00 | NUR ---
PT RESTING IN HIGH FOWLERS POSITION PT DENIES ADDITIONAL NEEDS AT THE TIME PT ALL SAFETY PRECAUTIONS IN PLACE BA ACTIVE CHAIR ALARM IN USE.
--- NOTE | 2022-03-16 18:26 | NUR ---
PT RESTING IN HIGH FOWLERS POSITION. PT DENIES ADDITIONAL NEEDS AT THE TIME PT PHONE CALL PROVIDED. FOR PT IV SITE NOTED TO RFA. CALL LIGHT IN REACH AND BA ACTIVE.
--- NOTE | 2022-03-16 18:27 | NUR ---
PT RESTING IN HIGH FOWLERS POSITION. PT DENIED ADDITIONAL NEEDS PT COMPLIANT AT THE TIME. BA ACTIVE.
--- NOTE | 2022-03-16 19:05 | NUR ---
REPORT RECEIVED FROM Kyler MADDEN LPN
--- NOTE | 2022-03-16 20:46 | NUR ---
PATIENT ASSITED TO BED, UNABLE TO ADMINISTER LOVENOX, PATIENT AGITATED AND SWIGNING HANDS AT WRITTER. REFUSED OHTER MEDICATIONS AT THIS TIME. SPIT THEM BACK OUT INTO MEDICATION CUP. COVERED WITH WARM BLANKETS FOR COMFORT. BED ALARM INITIATED FOR SAFETY.
--- NOTE | 2022-03-17 | NUR ---
PATIENT SLEEPIGN SOUNDLY, NO APAPRENT DISTRESS NOTED. CALL LIGHT AND BEDSIDE TABLE WITHIN RECH. BED ALARM ON FOR SAFETY.
--- NOTE | 2022-03-17 00:50 | NUR ---
PATIENT UP AND AGITATED, VITALS TAKEN AT THIS TIME.
--- NOTE | 2022-03-17 04:45 | NUR ---
PATIENT CLEANED UP AT THIS TIME. SITTING ON THE BED. BED ALARM REMAINS ON AND ITEMS WITHIN REACH.
[2022-03-17 04:49] VITALS: BP 124/73
[2022-03-17 06:31] VITALS: BP 159/78
--- NOTE | 2022-03-17 07:00 | NUR ---
RECEIVE REPORT LUNA RUEDA RN.
[2022-03-17 07:50] VITALS: BP 159/78
--- NOTE | 2022-03-17 08:00 | NUR ---
PATIENT ALERT AND ORIENTED X1. RESTING IN BED STABLE AT THIS TIME. PATIENT IS EDUCATED ABOUD MEDICATIONS AND NURSING PLAN FOR TODAY. PATIENT CONFUSE AT THIS TIME.
--- NOTE | 2022-03-17 10:37 | NUR ---
Pt initially sleeping and TOUR GUIDE reported pt just fell asleep and was up most of night. Returned and pt in BR >1/2hour doing am care. Treatment not given at this time.
[2022-03-17] MEDS ORDERED: QUETIAPINE FUMA25 MG PO (11:19)
--- NOTE | 2022-03-17 11:53 | NUR ---
PATIENT RESTING STABLE IN BED.
--- NOTE | 2022-03-17 14:15 | NUR ---
Discharge instructions given. Patient verbalizes understanding of same. Discharged in stable condition via Wheelchair to [facility] with staff. All belongings sent with pt.
== END 2022-03-17 14:22 ==
LOC: ED 10:34 → ED-I 11:04 → ED 16:25 → MS2 16:26
PROVIDERS: Emergency Medicine; Internal Medicine; ADMIT Internal Medicine; ATTEND Internal Medicine
DX: F03.911 Unspecified dementia, unspecified severity, with agitation (principal); S73.102A Unspecified sprain of left hip, initial encounter; I10 Essential (primary) hypertension; F17.210 Nicotine dependence, cigarettes, uncomplicated; Z91.81 History of falling; Z59.01 Sheltered homelessness; W19.XXXA Unspecified fall, initial encounter
CPT/HCPCS: J1650; J2060; S0166